=== PATIENT | female | born 1965 | race Caucasian/White ===

== ENCOUNTER 2017-06-08 12:09 | Day surgery (SDC) | payer SELFPAY ==
[2017-06-08] MEDS ORDERED: ALPRAZolam 0.5 MG TAB PO STA (12:45)
--- NOTE | 2017-06-08 13:22 | US ---
ULTRASOUND GUIDED FNA THYROID BIOPSY: CLINICAL HISTORY: Right thyroid nodule FINDINGS: The procedure was explained to the patient. The risks, complications, benefits and alternatives were discussed and any questions were answered. Informed consent was obtained. Patient was placed supin e on the ultrasound table and prepped and draped in the usual sterile fashion. Utilizing a 25 gauge needle, five passes were made into the requested right thyroid nodule. Patient was stable throughout the procedure. Pathology is pending. All elements of maximal barrier technique were utilized. IMPRESSION: 1. Successful ultrasound guided FNA thyroid biopsy.
[2017-06-08 14:34] VITALS: RESP 18; TEMP 98.1
[2017-06-08 14:36] VITALS: BP 147/80; PULSE 76
== END 2017-06-08 14:05 | disposition home or self-care (01) ==
LOC: RADPROMAIN 12:09
PROVIDERS: ATTEND Family Medicine
DX: E04.1 Nontoxic single thyroid nodule (principal); E07.89 Other specified disorders of thyroid
CPT/HCPCS: 10022; 76942; 88173; 88305

== ENCOUNTER 2017-08-22 12:35 | Emergency (ER) | payer SELFPAY ==
[2017-08-22] MEDS ORDERED: METOPROLOL TARTRATE 50 MG TAB PO STA (12:54)
--- NOTE | 2017-08-22 12:57 | ED ---
General Adult HPI - General Chief complaint: Recheck/Abnormal Lab/Rx Stated complaint: Hypertension Time Seen by Provider: 08/22/17 12:44 Source: patient, RN notes reviewed Mode of arrival: wheelchair Limitations: no limitations - History of Present Illness Initial comments: Patient is a pleasant 52-year-old female presenting to the emergency department for hypertension. Blood pressure has been running high since Tuesday. Blood pressure has been around 190/120. Patient did go doctor today with similar blood pressure of 190/110 and was advised come the emergency department. Patient feels somewhat tingly. Patient denies any chest discomfort. No shortness of breath. Patient does have a history of hypertension and has been taking her medication. 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 No confusion or weakness. Patient does complain of a headache. - Related Data Home Medications Medication Instructions Recorded Confirmed Acetaminophen [Tylenol] 650 mg PO Q4H PRN 06/06/17 08/22/17 Levothyroxine Sodium [Synthroid] 75 mcg PO DAILY 06/06/17 08/22/17 Meloxicam [Mobic] 15 mg PO DAILY 06/06/17 08/22/17 Dextroamphetamine/Amphetamine 30 mg PO DAILY 08/22/17 08/22/17 [Adderall Xr] Metoprolol Succinate [Toprol XL] 100 mg PO DAILY 08/22/17 08/22/17 Allergies Allergy/AdvReac Type Severity Reaction Status Date / Time No Known Allergies Allergy Verified 08/22/17 13:24 Review of Systems ROS Statement: Those systems with pertinent positive or pertinent negative responses have been documented in the HPI. ROS Other: All systems not noted in ROS Statement are negative. Constitutional: Denies: fever Eyes: Denies: eye pain ENT: Denies: ear pain Respiratory: Denies: cough Cardiovascular: Denies: chest pain Endocrine: Denies: fatigue Gastrointestinal: Denies: abdominal pain Genitourinary: Denies: dysuria Musculoskeletal: Denies: back pain Skin: Denies: rash Neurological: Reports: headache. Denies: weakness, confusion Past Medical History Past Medical History: Asthma, Hypertension, Osteoarthritis (OA), Thyroid Disorder Additional Past Medical History / Comment(s): hypothyroid History of Any Multi-Drug Resistant Organisms: None Reported Past Surgical History: Section Additional Past Surgical History / Comment(s): endometriosis surgery 3 times, c- section times 2 Past Anesthesia/Blood Transfusion Reactions: No Reported Reaction Past Psychological History: ADD/ADHD Smoking Status: Current every day smoker Past Alcohol Use History: Rare Past Drug Use History: None Reported - Past Family History Brother(s) Family Medical History: Cancer Additional Family Medical History / Comment(s): lung - Father Family Medical History: Thyroid Disorder Additional Family Medical History / Comment(s): hypothyroid Sister(s) Family Medical History: Thyroid Disorder Additional Family Medical History / Comment(s): hyperthyroid Mother Family Medical History: Thyroid Disorder Additional Family Medical History / Comment(s): hypothyroid General Exam Limitations: no limitations General appearance: alert, in no apparent distress Head exam: Present: atraumatic Eye exam: Present: normal appearance, PERRL, EOMI ENT exam: Present: normal oropharynx Neck exam: Present: normal inspection Respiratory exam: Present: normal lung sounds bilaterally Cardiovascular Exam: Present: regular rate, normal rhythm GI/Abdominal exam: Present: soft. Absent: tenderness Extremities exam: Present: normal inspection Neurological exam: Present: alert, oriented X3, CN II-XII intact. Absent: motor sensory deficit Expanded Cranial nerves: EOM's Intact: Normal Sensory exam: Upper Extremity Light Touch: Normal, Lower Extremity Light Touch: Normal Motor strength exam: RUE: 5, LUE: 5, RLE: 5, LLE: 5 Psychiatric exam: Present: normal affect, normal mood Skin exam: Present: normal color Course Vital Signs 08/22/17 08/22/17 08/22/17 12:44 13:46 14:00 Temperature 97.8 F Pulse Rate 77 63 Respiratory 16 16 Rate Blood Pressure 183/92 175/79 167/76 O2 Sat by Pulse 99 97 Oximetry EKG Findings - EKG Comments: EKG Findings:: Normal sinus rhythm 67. ME 154. QRS 94. QT 398. QTC 420. Normal axis. Normal QRS. No acute ST change. Medical Decision Making - Medical Decision Making Patient reexamined and resting comfortably in bed. Blood pressure has improved. Patient still has somewhat of a headache and is receptive to medication. Patient is otherwise comfortable with discharge home and agreeable to close follow-up with her doctor. - Lab Data Result diagrams: 08/22/17 12:58 08/22/17 12:58 Lab Results 08/22/17 08/22/17 08/22/17 Range/Units 12:58 12:58 12:58 WBC 7.8 (3.8-10.6) k/uL RBC 4.93 (3.80-5.40) m/uL Hgb 15.2 (11.4-16.0) gm/dL Hct 46.0 (34.0-46.0) % MCV 93.3 (80.0-100.0) fL MCH 30.8 (25.0-35.0) pg MCHC 33.0 (31.0-37.0) g/dL RDW 13.2 (11.5-15.5) % Plt Count 305 (150-450) k/uL Neutrophils % 55 % Lymphocytes % 33 % Monocytes % 7 % Eosinophils % 3 % Basophils % 1 % Neutrophils # 4.3 (1.3-7.7) k/uL Lymphocytes # 2.6 (1.0-4.8) k/uL Monocytes # 0.6 (0-1.0) k/uL Eosinophils # 0.3 (0-0.7) k/uL Basophils # 0.1 (0-0.2) k/uL PT (9.0-12.0) sec INR (<1.2) APTT (22.0-30.0) sec Sodium 140 (137-145) mmol/L Potassium 4.3 (3.5-5.1) mmol/L Chloride 106 (98-107) mmol/L Carbon Dioxide 24 (22-30) mmol/L Anion Gap 10 mmol/L BUN 15 (7-17) mg/dL Creatinine 0.60 (0.52-1.04) mg/dL Est GFR (MDRD) Af Amer >60 (>60 ml/min/1.73 sqM) Est GFR (MDRD) Non-Af >60 (>60 ml/min/1.73 sqM) Glucose 91 (74-99) mg/dL Calcium 9.6 (8.4-10.2) mg/dL Phosphorus 3.7 (2.5-4.5) mg/dL Total Bilirubin 0.4 (0.2-1.3) mg/dL AST 22 (14-36) U/L ALT 34 (9-52) U/L Alkaline Phosphatase 80 (38-126) U/L Total Creatine Kinase 75 (30-135) U/L CK-MB (CK-2) 2.2 (0.0-2.4) ng/mL CK-MB (CK-2) Rel Index 2.9 Troponin I <0.012 (0.000-0.034) ng/mL Total Protein 7.0 (6.3-8.2) g/dL Albumin 4.1 (3.5-5.0) g/dL TSH 3.790 (0.465-4.680) mIU/L Free T4 1.16 (0.78-2.19) ng/dL Free T3 pg/mL 3.6 (2.8-5.3) pg/ml Urine Color Urine Appearance (Clear) Urine pH (5.0-8.0) Ur Specific [place] (1.001-1.035) Urine Protein (Negative) Urine Glucose (UA) (Negative) Urine Ketones (Negative) Urine Blood (Negative) Urine Nitrite (Negative) Urine Bilirubin (Negative) Urine Urobilinogen (<2.0) mg/dL Ur Leukocyte Esterase (Negative) Urine RBC (0-5) /hpf Urine WBC (0-5) /hpf Ur Squamous Epith Cells (0-4) /hpf Urine Mucus (None) /hpf 08/22/17 08/22/17 Range/Units 12:58 13:35 WBC (3.8-10.6) k/uL RBC (3.80-5.40) m/uL Hgb (11.4-16.0) gm/dL Hct (34.0-46.0) % MCV (80.0-100.0) fL MCH (25.0-35.0) pg MCHC (31.0-37.0) g/dL RDW (11.5-15.5) % Plt Count (150-450) k/uL Neutrophils % % Lymphocytes % % Monocytes % % Eosinophils % % Basophils % % Neutrophils # (1.3-7.7) k/uL Lymphocytes # (1.0-4.8) k/uL Monocytes # (0-1.0) k/uL Eosinophils # (0-0.7) k/uL Basophils # (0-0.2) k/uL PT 10.1 (9.0-12.0) sec INR 1.0 (<1.2) APTT 23.8 (22.0-30.0) sec Sodium (137-145) mmol/L Potassium (3.5-5.1) mmol/L Chloride (98-107) mmol/L Carbon Dioxide (22-30) mmol/L Anion Gap mmol/L BUN (7-17) mg/dL Creatinine (0.52-1.04) mg/dL Est GFR (MDRD) Af Amer (>60 ml/min/1.73 sqM) Est GFR (MDRD) Non-Af (>60 ml/min/1.73 sqM) Glucose (74-99) mg/dL Calcium (8.4-10.2) mg/dL Phosphorus (2.5-4.5) mg/dL Total Bilirubin (0.2-1.3) mg/dL AST (14-36) U/L ALT (9-52) U/L Alkaline Phosphatase (38-126) U/L Total Creatine Kinase (30-135) U/L CK-MB (CK-2) (0.0-2.4) ng/mL CK-MB (CK-2) Rel Index Troponin I (0.000-0.034) ng/mL Total Protein (6.3-8.2) g/dL Albumin (3.5-5.0) g/dL TSH (0.465-4.680) mIU/L Free T4 (0.78-2.19) ng/dL Free T3 pg/mL (2.8-5.3) pg/ml Urine Color Yellow Urine Appearance Clear (Clear) Urine pH 5.5 (5.0-8.0) Ur Specific [place] 1.015 (1.001-1.035) Urine Protein Negative (Negative) Urine Glucose (UA) Negative (Negative) Urine Ketones Negative (Negative) Urine Blood Trace H (Negative) Urine Nitrite Negative (Negative) Urine Bilirubin Negative (Negative) Urine Urobilinogen <2.0 (<2.0) mg/dL Ur Leukocyte Esterase Moderate H (Negative) Urine RBC 3 (0-5) /hpf Urine WBC 4 (0-5) /hpf Ur Squamous Epith Cells 3 (0-4) /hpf Urine Mucus Rare H (None) /hpf - Radiology Data Radiology results: report reviewed (Computed tomography scan of the brain shows no acute process), image reviewed (Two-view chest x-ray shows no acute process.) Disposition Clinical Impression: Hypertension Disposition: HOME SELF-CARE Condition: Stable Instructions: Hypertension (ED) Additional Instructions: Please follow-up to in the next day or 2 for recheck. Return for increased blood pressure, headache, weakness or confusion, worsening symptoms or other concerns. Referrals: Mono Hayward DO [Primary Care Provider] - 1-2 days Time of Disposition: 14:26
[2017-08-22 13:22] LABS: Basophils # (A) 0.1 k/uL (0-0.2); Basophils % (A) 1 %; CH 31.9; CHCM 34.3; Eosinophils # (A) 0.3 k/uL (0-0.7); Eosinophils % (A) 3 %; HGB 15.2 gm/dL (11.4-16.0); Luc # (Auto) 0.07; Luc % (Auto) 1; Lymphocytes # (A) 2.6 k/uL (1.0-4.8); Lymphocytes % (A) 33 %; MCH 30.8 pg (25.0-35.0); MCV 93.3 fL (80.0-100.0); Mean Platelet Volume 7.5; Monocytes # (A) 0.6 k/uL (0-1.0); Monocytes % (A) 7 %; Neutrophils # (A) 4.3 k/uL (1.3-7.7); Neutrophils % (A) 55 %; RBC 4.93 m/uL (3.80-5.40); RDW 13.2 % (11.5-15.5); WBC 7.8 k/uL (3.8-10.6); WBC (Perox) 7.76
--- NOTE | 2017-08-22 13:33 | CT ---
EXAMINATION TYPE: CT brain wo con DATE OF EXAM: 08/22/2017 COMPARISON: NONE HISTORY: BO, hypertension CT DLP: 892.[address] of the brain was performed. The ventricles, basal cisterns and sulci overlying the cerebral convexities demonstrate mild enlargem ent. There is no evidence for intracranial hemorrhage or sulcal effacement. There is decreased attenuation about the periventricular white matter and deep white matter of both c erebral hemispheres, compatible with chronic small vessel ischemia. Differential diagnosis does inclu de demyelination. No mass effects are seen.No midline shift. Osseous calvarium is intact. If symptoms persist consider MRI. IMPRESSION: 1. Age related atrophic and chronic small vessel ischemic change without acute intracranial process s een at this time.
[2017-08-22 13:36] LABS: ALT 34 U/L (9-52); AST 22 U/L (14-36); Alkaline Phosphatase 80 U/L (38-126); Anion Gap 10 mmol/L; Blood Urea Nitrogen 15 mg/dL (7-17); Calcium 9.6 mg/dL (8.4-10.2); Carbon Dioxide 24 mmol/L (22-30); Chloride 106 mmol/L (98-107); Glucose 91 mg/dL (74-99); Non-African American GFR(MDRD) >60 (>60 ml/min/1.73 sqM); Phosphorus 3.7 mg/dL (2.5-4.5); Potassium 4.3 mmol/L (3.5-5.1); Sodium 140 mmol/L (137-145); Total Bilirubin 0.4 mg/dL (0.2-1.3)
[2017-08-22 13:39] LABS: Partial Thromboplastin Time 23.8 sec (22.0-30.0); Prothrombin Time 10.1 sec (9.0-12.0)
[2017-08-22 13:40] LABS: Creatine Kinase 75 U/L (30-135)
[2017-08-22 13:50] LABS: Appearance,Urine Clear (Clear); Bilirubin,Urine Negative (Negative); Glucose,Urine (UA) Negative (Negative); Ketones,Urine Negative (Negative); Leukocyte Esterase,Urine Moderate (Negative); Mucus,Urine Rare /hpf; Nitrite,Urine Negative (Negative); PH, Urine 5.5 (5.0-8.0); Particle Count 2656; Protein,Urine Negative (Negative); RBC,Urine 3 /hpf (0-5); Specific Gravity,Urine 1.015 (1.001-1.035); Squamous Epithelial Cell,Urine 3 /hpf (0-4); UA Billing (MACRO vs. MICRO) MICRO; Urobilinogen,Urine <2.0 mg/dL (<2.0); WBC,Urine 4 /hpf (0-5)
[2017-08-22 13:53] LABS: Creatine Kinase MB 2.2 ng/mL (0.0-2.4); Troponin I <0.012 ng/mL (0.000-0.034)
--- NOTE | 2017-08-22 14:15 | XR ---
EXAMINATION TYPE: XR chest 2V DATE OF EXAM: 08/22/2017 COMPARISON: NONE TECHNIQUE: PA and lateral views submitted. HISTORY: Weakness FINDINGS: The lungs are clear and there is no pneumothorax, pleural effusion, or focal pneumonia. Biapical pl eural thickening. Atherosclerotic change aorta. IMPRESSION: 1. No acute process.
[2017-08-22] MEDS ORDERED: Acetaminophen-Codeine 300-30mg TAB PO STA (14:23)
[2017-08-22 14:36] VITALS: BP 174/84; PULSE 61; RESP 12; TEMP 97.6
== END 2017-08-22 14:38 | disposition home or self-care (01) ==
LOC: EC 12:35
DX: I10 Essential (primary) hypertension (principal); M19.90 Unspecified osteoarthritis, unspecified site; E03.9 Hypothyroidism, unspecified; F90.9 Attention-deficit hyperactivity disorder, unspecified type; F17.200 Nicotine dependence, unspecified, uncomplicated; Z79.1 Long term (current) use of non-steroidal anti-inflammatories (NSAID); Z79.899 Other long term (current) drug therapy
CPT/HCPCS: 36415; 70450; 71020; 80053; 81001; 82550; 82553; 84100; 84439; 84443; 84481; 84484; 85025; 85610; 85730; 93005; 99284

== ENCOUNTER → 2018-02-10 | Outpatient (CLI) | payer OTHER ==
--- NOTE | 2018-02-10 10:13 | FL ---
ESOPHOGRAM. HISTORY: Dysphagia. Thyroid nodule. Esophagram was performed per the air contrast technique. The patient swallowed barium and effervesce nt crystals without difficulty or delay. Esophageal peristalsis and motility appear to be within normal limits. There is no evidence for filling defect, mass or diverticulum. No hiatal hernia seen. Subsequently single contrast cervical esophagram was performed which fails demonstrate evidence for a spiration penetration or mass. IMPRESSION: Unremarkable study.
== END | disposition home or self-care (01) ==
LOC: RADFLMAIN 09:18
PROVIDERS: ATTEND Family Medicine
DX: R09.89 Other specified symptoms and signs involving the circulatory and respiratory systems (principal)
CPT/HCPCS: 74220

== ENCOUNTER → 2024-03-20 | Outpatient (CLI) | payer OTHER ==
--- NOTE | 2024-03-20 14:55 | CA ---
Transthoracic Echo Report Name: Deidre Conklin Age: 58 Gender: F : 1965 Exam Date: 03/20/2024 12:53 Exam Location: [facility] Ht (in): 62 Wt (lb): 115 Ordering Physician: Mono Hayward DO Attending/Referring Phys: Chari Tomlinson [facility] [employer] Repairer Karyna Mejia RDCS Procedure CPT: Indications: R00.2 palpitations Cardiac Hx: Technical Quality: Good Contrast 1: Total Dose (mL): Contrast 2: Total Dose (mL): MEASUREMENTS (Male / Female) Normal Values 2D ECHO LV Diastolic Diameter PLAX 4.1 cm 4.2 - 5.9 / 3.9 - 5.3 cm LV Systolic Diameter PLAX 2.9 cm IVS Diastolic Thickness 0.9 cm 0.6 - 1.0 / 0.6 - 0.9 cm LVPW Diastolic Thickness 0.9 cm 0.6 - 1.0 / 0.6 - 0.9 cm LV Relative Wall Thickness 0.4 RV Internal Dim ED PLAX 2.2 cm LVOT Diameter 1.9 cm LV Diastolic Volume MOD BP 75.2 cm??? 67 - 155 / 56 - 104 cm??? LV Systolic Volume MOD BP 30.1 cm??? 22 - 58 / 19 - 49 cm??? LV Ejection Fraction MOD BP 60.0 % >= 55 % LV Cardiac Index MOD BP 2536.6 cm???/min???m??? LV Diastolic Volume MOD 4C 75.2 cm??? LV Systolic Volume MOD 4C 25.7 cm??? LV Ejection Fraction MOD 4C 65.8 % LV Cardiac Index MOD 4C 2778.7 cm???/min???m??? LV Diastolic Length 4C 7.5 cm LV Systolic Length 4C 6.3 cm LV Diastolic Volume MOD 2C 74.7 cm??? LV Systolic Volume MOD 2C 33.9 cm??? LV Ejection Fraction MOD 2C 54.6 % LV Cardiac Index MOD 2C 2294.1 cm???/min???m??? LV Diastolic Length 2C 7.5 cm LV Systolic Length 2C 6.5 cm LA Volume 35.6 cm??? 18 - 58 / 22 - 52 cm??? LA Volume Index 23.5 cm???/m??? 16 - 28 cm???/m??? Ascending Aorta Diameter 3.0 cm DOPPLER AV Peak Velocity 114.8 cm/s AV Peak Gradient 5.3 mmHg AV Mean Velocity 82.0 cm/s AV Mean Gradient 3.0 mmHg AV Velocity Time Integral 18.9 cm LVOT Peak Velocity 90.0 cm/s LVOT Peak Gradient 3.2 mmHg LVOT Velocity Time Integral 15.7 cm LVOT Stroke Volume 46.9 cm??? LVOT Stroke Volume Index 31.0 ml/m??? LVOT Cardiac Index 2634.0 cm???/min???m??? AV Area Cont Eq vti 2.5 cm??? AV Area Cont Eq pk 2.3 cm??? MV Area PHT 7.1 cm??? Mitral E Point Velocity 58.6 cm/s Mitral A Point Velocity 82.0 cm/s Mitral E to A Ratio 0.7 MV Deceleration Time 106.9 ms PV Peak Velocity 99.9 cm/s PV Peak Gradient 4.0 mmHg FINDINGS Left Ventricle Left ventricular ejection fraction is estimated at 60-65 %. Left ventricular cavity size normal. Left ventricular wall thickness normal. No obvious regional wall motion abnormalities. Right Ventricle Normal right ventricular size and function. Unable to estimate the right ventricular systolic pressure. Right Atrium Normal right atrial size. Left Atrium Normal left atrial size. Mitral Valve Structurally normal mitral valve. No evidence for mitral valve prolapse. No mitral stenosis. No mitral regurgitation. Aortic Valve Trileaflet aortic valve. No aortic valve stenosis or regurgitation. Tricuspid Valve Structurally normal tricuspid valve. No tricuspid stenosis. Trace tricuspid regurgitation. Pulmonic Valve Structurally normal pulmonic valve. No pulmonic stenosis. No pulmonic regurgitation. Pericardium No pericardial effusion. Aorta Normal size aortic root and proximal ascending aorta. CONCLUSIONS Preserved LV send stomach function Previewed by: Dr. Harvinder Yuen MD (Electronically Signed) Final Date: 20 March 2024 14:54
== END | disposition home or self-care (01) ==
LOC: RADECHMAIN 12:48
PROVIDERS: ATTEND Family Medicine
DX: R00.2 Palpitations (principal)
CPT/HCPCS: 93306

== ENCOUNTER 2024-10-04 06:13 | Day surgery (SDC) | payer OTHER ==
[2024-10-04] MEDS ORDERED: LIDOCAINE 1% (10MG/ML) FOR IV START INTRADERMA PRN (06:19)
[2024-10-04 06:55] VITALS: TEMP 97
[2024-10-04] MEDS: LACTATED RINGERS 1,000 ML IV SCH (07:05)
[2024-10-04] MEDS: LACTATED RINGERS 1,000 ML IV ONE (07:22)
[2024-10-04] MEDS ORDERED: LIDOCAINE 1% INJ 10MG/ML (20 ML MDV) ONE (07:22)
[2024-10-04] MEDS ORDERED: PROPOFOL 10 MG/ML 20 ML VIAL IV ONE (07:22)
--- NOTE | 2024-10-04 07:32 | P.PCN ---
Date of Procedure: 10/04/24 Procedure(s) Performed: BRIEF HISTORY: Patient is a 59-year-old, pleasant, white female scheduled for an upper endoscopy as a part evaluation of intermittent dysphagia to solids for the last 6 months duration.. PROCEDURE PERFORMED: Esophagogastroduodenoscopy with biopsy. PREOPERATIVE DIAGNOSIS: Intermittent dysphagia to solids. IV sedation per anesthesia. PROCEDURE: After informed consent was obtained, the patient was brought into the endoscopy unit. IV sedation was administered by Anesthesia under continuous monitoring. Initially the Olympus GIF-140 video endoscope was inserted into the mouth. Esophagus intubated without any difficulty. It was gradually advanced into the stomach and duodenum and carefully examined. The bulb and the second part of the duodenum appeared normal. The scope at this time was withdrawn to the stomach, adequately insufflated with air, and upon careful examination, mucosa of the antrum, had patchy areas of erythema consistent with gastritis and biopsies were done from this area. Mucosa body, cardia and the fundus appeared normal. The scope was then withdrawn into the esophagus. Small hiatal hernia noted. The GE junction was located at 39 cm from the incisors. The esophagus appeared normal. There were no erosions or ulcerations seen. No evidence of es ophageal stricture. Multiple biopsies were done from the mid and distal esophagus rule out eosinophilic esophagitis and the patient tolerated the procedure well. IMPRESSION: 1. Small hiatal hernia but no evidence of esophagitis or esophageal stricture. 2. Mild antral gastritis. RECOMMENDATIONS: The findings of this examination were discussed with the patient as well as her family. She was advised to follow with the biopsy results. If she has persistent symptoms she was advised to follow-up in the office for further evaluation.
[2024-10-04] MEDS: IV FLUID CONTINUATION 1,000 ML IV ONE ×2 (07:36→08:25)
[2024-10-04 08:22] VITALS: BP 132/82; PULSE 78; RESP 16
== END 2024-10-04 08:28 | disposition home or self-care (01) ==
LOC: ORWHC2ENDO 06:13
PROVIDERS: ATTEND Internal Medicine Gastroenterology
DX: K29.50 Unspecified chronic gastritis without bleeding (principal); K44.9 Diaphragmatic hernia without obstruction or gangrene; I10 Essential (primary) hypertension; E07.9 Disorder of thyroid, unspecified; J45.909 Unspecified asthma, uncomplicated; F90.9 Attention-deficit hyperactivity disorder, unspecified type; M19.90 Unspecified osteoarthritis, unspecified site; F17.200 Nicotine dependence, unspecified, uncomplicated; Z79.890 Hormone replacement therapy; Z79.899 Other long term (current) drug therapy
CPT/HCPCS: 43239; J2003; J2704; 88305

== ENCOUNTER → 2024-11-07 | Outpatient (CLI) | payer BC ==
--- NOTE | 2024-11-07 09:45 | MM ---
Reason for Exam: Screening (asymptomatic). Baseline mammogram. Patient History: Menarche at age 14. First Full-Term at age 23. Postmenopausal. Maternal aunt had breast cancer. Maternal aunt had breast cancer. Risk Values: Doreen 5 year model risk: 1.2%. NCI Lifetime model risk: 6.9%. Prior Study Comparison: Patient's first Mammogram. Tissue Density: There are scattered areas of fibroglandular density. Findings: Analyzed By CAD. Right breast: There is no suspicious group of microcalcifications or new suspicious mass. Left breast: Architectural distortion inner lower quadrant 4.8 cm nipple. Overall Assessment: Incomplete: need additional imaging evaluation, BI-RAD 0 Management: Diagnostic Mammogram of the left breast. Diagnostic Breast Ultrasound of the left breast. [facility] will attempt to contact patient to return for supplemental views and ultrasound if indicated. Patient should continue monthly self-breast exams. A clinical breast exam by your physician is recommended on an annual basis. This exam should not preclude additional follow-up of suspicious palpable abnormalities. Note on Doreen scores and lifetime risk: 1. A Doreen score greater than 3% is considered moderate risk. If this is the case, consider specialist referral to assess eligibility for a risk reducing agent. 2. If overall lifetime risk for the development of breast cancer is 20% or higher, the patient may qualify for future screening with alternating mammogram and breast MRI. [facility], , 11/07/2024 9:42 AM. Electronically signed and approved by: Salvador Hathaway DO
== END | disposition home or self-care (01) ==
LOC: RADMAMWWP 07:15
PROVIDERS: ATTEND Family Medicine
DX: Z12.31 Encounter for screening mammogram for malignant neoplasm of breast (principal); R92.323 Mammographic fibroglandular density, bilateral breasts; Z78.0 Asymptomatic menopausal state; Z80.3 Family history of malignant neoplasm of breast
CPT/HCPCS: 77063; 77067

== ENCOUNTER → 2024-12-05 | Day surgery (SDC) | payer BC ==
--- NOTE | 2024-12-18 10:11 | MM ---
Reason for Exam: Post Procedure Mammogram. Last screening mammogram was performed less than 1 month ago. Patient History: Menarche at age 14. First Full-Term at age 23. Postmenopausal. Maternal aunt had breast cancer. Maternal aunt had breast cancer. Risk Values: Doreen 5 year model risk: 1.2%. NCI Lifetime model risk: 6.9%. Prior Study Comparison: 11/07/2024 Bilateral MG 3D screening mammo w/cad, [facility]. 11/29/2024 Left MG 3D work up w/cad LT, [facility]. 11/29/2024 Left US breast workup , [facility]. Tissue Density: Left: There are scattered areas of fibroglandular density. Pathology Description: Location: 8 o'clock. Marker Left Behind. Needle Type: Mammotome Cores: 6 Skin Nicks: 1 Gauge: 13 The procedure of ultrasound guided core biopsy was explained to the patient. Benefits, alternatives, and risks were discussed. An informed consent was then obtained. The patient was placed in supine positioning for imaging and for the procedure. The overlying skin was prepped and draped in usual sterile fashion. Lidocaine buffered with bicarbonate was used as anesthetic into the skin and subcutaneous tissue up to area of concern in the left breast. A naif was made with surgical scalpel. Under ultrasound guidance, a 12-gauge vacuum assisted biopsy gun device was used to obtain 6 core samples. Following this, a coil biopsy clip and a wing clip marker left in lesion. As we could not see the first clip. The patient tolerated the procedure well without any immediate complication. The patient was kept in the radiology department for short stay after the procedure and then discharged home in stable condition. Postprocedure mammogram: The patient was transferred to mammography for physician ordered post procedure mammogram for clip placement verification. Post procedure mammogram demonstrates appropriate placement of clips and mass is still identified next to clip. Impression: Successful, uncomplicated ultrasound guided core biopsy of area of concern in the left breast, full pathology results to follow. [facility], , 12/05/2024 12:09 PM. Pathology Results: Result: Malignant, Ductal carcinoma in situ, cribriform type. Pathology and radiology were reviewed. Findings are concordant. LEFT BREAST, 8:00 POSITION, ULTRASOUND GUIDED CORE BIOPSY: Low grade ductal carcinoma in situ (DCIS) with focal microcalcification involving fibrotic and elastotic stroma of a potential radial scar. Rare area suspicious for possible microinvasive carcinoma, final assessment for presence of microinvasive or invasive carcinoma deferred to resection specimen. (see Surgical Pathology Cancer Case Summary and comment). Overall Assessment: Malignant Assessment: MG diagnostic mammo LT wo CAD. - Left: Known biopsy proven malignancy, BI-RAD 6. Management: Surgical Consultation of the left breast. Electronically signed and approved by: Salvador Hathaway DO
== END ==
LOC: RADUSWWP 09:54
PROVIDERS: ATTEND Surgery
DX: D05.12 Intraductal carcinoma in situ of left breast (principal); Z78.0 Asymptomatic menopausal state
CPT/HCPCS: 88305; 88342; 88341; 77065; 19083; A4648

== ENCOUNTER → 2024-12-20 | Outpatient (CLI) | payer BC ==
[2024-12-20 10:41] VITALS: BP 129/80; PULSE 71; RESP 16; TEMP 98.7
--- NOTE | 2024-12-20 11:08 | P.GSCN ---
History of Present Illness Consult date: 12/20/24 Reason for Consult: DCIS left breast Requesting physician: Mono Hayward History of present illness: Deidre is a 59 year old female seen in consultation for Dr. Hayward regarding a biopsy proven left breast DCIS. She had a bilateral screening mammogram on 11-07-24 which led to a diagnositc left breast mammogram and ultrasound on 11-29-24. These showed a lesion in the left breast 6 mm in size for which ultrasound core biopsy was done on 12-05-24. This revealed a low grade DCIS, ER+Pr+. She felt some nodularity prior to the mammogram. She tolerated the biopsy but states it was painful. She got black and blue and had some pain. She had not had any other surgery on her breast. This was her first mammogram. She is not complaining of any recent trauma or infection in the breast. She had never had any surgery on her breast. She did have come clear drainage form the left nipple in the past. The changes on ultrasound are in the lower inner breast 4 cm from nipple. caffeine: several times a week nicotine: / PPD has been smoking since 19 chocolate: occasional BCP: none hormones: none Family History: brother: mesotheloma 2 maternal aunts: breast cancer maternal grandmother: bone cancer Hormonal History: menarche: 14 , breast fed:yes, age at first : 23 menopause: early 40's Surgical History: 2 3 laproscopic surgeries for endometriosis Medical History: hypothyroid asthma osteoarthritis HTN Social History: nicotine: as above alcohol: none drugs: none Review of Systems - Constitutional Reports sweats, Denies fever, Denies weight loss - EENT EENT Comment(s): had difficulty swallowing and treated with antibiotics and better Eyes: denies blurred vision Ears: right: decreased hearing, deny: tinnitus Ears, nose, mouth and throat: Denies dysphagia - Breasts bilateral: as per HPI - Cardiovascular Reports shortness of breath, Denies chest pain - Respiratory Reports as per HPI, Reports cough - Gastrointestinal Gastrointestinal Comment(s): treated for H. Pylori - Genitourinary Genitourinary: Denies dysuria, Denies hematuria Menstruation: Reports postmenopausal - Musculoskeletal Reports as per HPI - Integumentary Denies rash, Denies unusual bruising - Neurological Denies headaches, Denies syncope - Psychiatric Reports as per HPI - Endocrine Reports as per HPI, Reports fatigue - Hematologic/Lymphatic Reports easy bruising, Denies easy bleeding - Allergic/Immunologic Reports seasonal allergies Past Medical History Past Medical History: Asthma, Hypertension, Osteoarthritis (OA), Thyroid Disorder Additional Past Medical History / Comment(s): hypothyroid History of Any Multi-Drug Resistant Organisms: None Reported Past Surgical History: Section Additional Past Surgical History / Comment(s): endometriosis surgery 3 times, c- section times 2 Past Anesthesia/Blood Transfusion Reactions: No Reported Reaction, Family History of Problems w/ Anesthesia Additional Past Anesthesia/Blood Transfusion Reaction / Comm: Niece had problems 30 yrs ago- not sure what, thinks just had a hard time coming out of anesthesia Past Psychological History: ADD/ADHD Smoking Status: Current some day smoker Past Alcohol Use History: None Reported Additional Past Alcohol Use History / Comment(s): currently smokes 5 cigarettes/week Past Drug Use History: None Reported - Past Family History Brother(s) Family Medical History: Cancer Additional Family Medical History / Comment(s): lung - Father Family Medical History: Thyroid Disorder Additional Family Medical History / Comment(s): hypothyroid Sister(s) Family Medical History: Thyroid Disorder Additional Family Medical History / Comment(s): hyperthyroid Mother Family Medical History: Thyroid Disorder Additional Family Medical History / Comment(s): hypothyroid Medications and Allergies Home Medications Medication Instructions Recorded Confirmed Type Acetaminophen [Tylenol] 650 mg PO Q4H PRN 06/06/17 12/20/24 History Levothyroxine Sodium [Synthroid] 88 mcg PO DAILY 06/06/17 12/20/24 History Dextroamphetamine/Amphetamine 15 mg PO BID 08/22/17 12/20/24 History [Adderall Xr] Albuterol Inhaler [Ventolin Hfa 1 - 2 puff INHALATION Q6H PRN 10/01/24 12/20/24 History Inhaler] Furosemide [Lasix] 20 mg PO BID 10/01/24 12/20/24 History Losartan [Cozaar] 25 mg PO DAILY 10/01/24 12/20/24 History Allergies Allergy/AdvReac Type Severity Reaction Status Date / Time No Known Allergies Allergy Verified 12/20/24 10:38 Surgical - Exam Vital Signs Temp Pulse Resp BP Pulse Ox 98.7 F 71 16 129/80 99 12/20/24 10:38 12/20/24 10:38 12/20/24 10:38 12/20/24 10:38 12/20/24 10:38 - General no distress - Eyes normal ocular movement - ENT no hearing loss - Neck trachea midline - Respiratory normal respiratory effort, clear to auscultation - Cardiovascular Rhythm: regular Heart Sounds: normal: S1, S2 - Integumentary bruise left arm - Neurologic no disoriented, no combative - Musculoskeletal normal gait - Psychiatric oriented to time, oriented to person, oriented to place, speech is normal, memory intact Breast Exam: BRA: 36C inspection: Bilateral grade 2 ptosis, ecchymosis lower inner quadrant left breast Palpation: Right breast: Multi positional exam no dominant masses or nodules of concern Right axilla: No adenopathy of concern Left breast: Multi positional exam no dominant masses or nodules of concern, mild ecchymosis at biopsy site no hematoma or infection Left axilla: No adenopathy of concern Results Mammogram and ultrasound personally reviewed and interpreted lesion left breast proximately 4 cm from the nipple approximately 6 mm in size lower inner aspect; 11-29-24 and screening mammogram on 11-07-24 Assessment and Plan Assessment: Impression: Biopsy-proven left breast ductal carcinoma in situ Plan: Presentation of case at tumor board CC: Dr. Hayward
== END ==
LOC: WWCWWP 09:53
PROVIDERS: ATTEND Surgery
DX: D05.12 Intraductal carcinoma in situ of left breast (principal); Z80.3 Family history of malignant neoplasm of breast; F17.210 Nicotine dependence, cigarettes, uncomplicated

== ENCOUNTER → 2025-01-24 | Outpatient (CLI) | payer BC ==
[2025-01-24 15:37] VITALS: BP 144/90; PULSE 98; RESP 17; TEMP 98.2
--- NOTE | 2025-01-24 16:04 | P.BCPN ---
Subjective Progress Note Date: 01/24/25 History of Present Illness Consult date: 01-24-25 Reason for Consult: DCIS left breast Requesting physician: Mono Hayward History of present illness: Deidre is a 59 year old female seen in consultation for Dr. Hayward regarding a biopsy proven left breast DCIS. She had a bilateral screening mammogram on 11-07-24 which led to a diagnositc left breast mammogram and ultrasound on 11-29-24. These showed a lesion in the left breast 6 mm in size for which ultrasound core biopsy was done on 12-05-24. This revealed a low grade DCIS, ER+Pr+. She felt some nodularity prior to the mammogram. She tolerated the biopsy but states it was painful. She got black and blue and had some pain. She had not had any other surgery on her breast. This was her first mammogram. She is not complaining of any recent trauma or infection in the breast. She had never had any surgery on her breast. She did have come clear drainage form the left nipple in the past. The changes on ultrasound are in the lower inner breast 4 cm from nipple. Patient's case presented at tumor board on 01 01 25. She has been recommended to undergo genetic testing and referral has been placed to [facility]. They were done with [facility] on 01-08-25. I have called the patient she understands that she states that if her genetic testing were positive she would want to have bilateral mastectomies. She also states that her family history is greater than what we had thought that she had 6 maternal aunts out of 10 with breast cancer. I had a discussion with the patient and her with Emily Youngblood present regarding risk and benefits of the treatment. At this time she would prefer to have a needle localization left breast lumpectomy with a sentinel node eval uation. The reason for the sentinel node evaluation is secondary to the fact that there is a question of microinvasion on the pathology report. Her case was presented at tumor board on 01 01 25 Genetic testing is pending and should be back by 01-29-2025. caffeine: several times a week nicotine: 10/13 PPD has been smoking since 19 chocolate: occasional BCP: none hormones: none Family History: brother: mesotheloma 2 maternal aunts: breast cancer maternal grandmother: bone cancer Hormonal History: menarche: 14 , breast fed:yes, age at first : 23 menopause: early 40's Surgical History: 2 3 laproscopic surgeries for endometriosis Medical History: hypothyroid asthma osteoarthritis HTN Social History: nicotine: as above alcohol: none drugs: none Review of Systems - Constitutional Reports sweats, Denies fever, Denies weight loss - EENT EENT Comment(s): had difficulty swallowing and treated with antibiotics and better Eyes: denies blurred vision Ears: right: decreased hearing, deny: tinnitus Ears, nose, mouth and throat: Denies dysphagia - Breasts bilateral: as per HPI - Cardiovascular Reports shortness of breath, Denies chest pain - Respiratory Reports as per HPI, Reports cough - Gastrointestinal Gastrointestinal Comment(s): treated for H. Pylori - Genitourinary Genitourinary: Denies dysuria, Denies hematuria Menstruation: Reports postmenopausal - Musculoskeletal Reports as per HPI - Integumentary Denies rash, Denies unusual bruising - Neurological Denies headaches, Denies syncope - Psychiatric Reports as per HPI - Endocrine Reports as per HPI, Reports fatigue - Hematologic/Lymphatic Reports easy bruising, Denies easy bleeding - Allergic/Immunologic Reports seasonal allergies Past Medical History Past Medical History: Asthma, Hypertension, Osteoarthritis (OA), Thyroid Disorder Additional Past Medical History / Comment(s): hypothyroid History of Any Multi-Drug Resistant Organisms: None Reported Past Surgical History: Section Additional Past Surgical History / Comment(s): endometriosis surgery 3 times, c- section times 2 Past Anesthesia/Blood Transfusion Reactions: No Reported Reaction, Family History of Problems w/ Anesthesia Additional Past Anesthesia/Blood Transfusion Reaction / Comm: Niece had problems 30 yrs ago- not sure what, thinks just had a hard time coming out of anesthesia Past Psychological History: ADD/ADHD Smoking Status: Current some day smoker Past Alcohol Use History: None Reported Additional Past Alcohol Use History / Comment(s): currently smokes 5 cigarettes/week Past Drug Use History: None Reported - Past Family History Brother(s) Family Medical History: Cancer Additional Family Medical History / Comment(s): lung - Father Family Medical History: Thyroid Disorder Additional Family Medical History / Comment(s): hypothyroid Sister(s) Family Medical History: Thyroid Disorder Additional Family Medical History / Comment(s): hyperthyroid Mother Family Medical History: Thyroid Disorder Additional Family Medical History / Comment(s): hypothyroid Medications and Allergies Home Medications Medication Instructions Recorded Confirmed Type Acetaminophen [Tylenol] 650 mg PO Q4H PRN 06/06/17 12/20/24 History Levothyroxine Sodium [Synthroid] 88 mcg PO DAILY 06/06/17 12/20/24 History Dextroamphetamine/Amphetamine 15 mg PO BID 08/22/17 12/20/24 History [Adderall Xr] Albuterol Inhaler [Ventolin Hfa 1 - 2 puff INHALATION Q6H PRN 10/01/24 12/20/24 History Inhaler] Furosemide [Lasix] 20 mg PO BID 10/01/24 12/20/24 History Losartan [Cozaar] 25 mg PO DAILY 10/01/24 12/20/24 History Allergies Allergy/AdvReac Type Severity Reaction Status Date / Time No Known Allergies Allergy Verified 12/20/24 10:38 Objective - Vital Signs Vital Signs: Vital Signs Temp 98.2 F 01/24/25 15:27 Pulse 98 01/24/25 15:27 Resp 17 01/24/25 15:27 BP 144/90 01/24/25 15:27 Pulse Ox 96 01/24/25 15:27 FiO2 Intake & Output 01/23/25 01/24/25 01/24/25 18:59 06:59 18:59 Weight 52.163 kg - Constitutional General appearance: Present: cooperative - EENT Eyes: Present: EOMI ENT: Present: hearing grossly normal - Neck Neck: Present: normal ROM - Breast Breast-Narrative: Breast Exam: BRA: 36C inspection: Bilateral grade 2 ptosis, ecchymosis lower inner quadrant left breast Palpation: Right breast: Multi positional exam no dominant masses or nodules of concern Right axilla: No adenopathy of concern Left breast: Multi positional exam no dominant masses or nodules of concern, mild ecchymosis at biopsy site no hematoma or infection Left axilla: No adenopathy of concern Ptosis: Grade 2: Right Breast Ptosis, Left Breast Ptosis Right Breast Palpation (Multi-positional): No dominant masses Left Breast Palpation (Multi-positional): No dominant masses Right Axilla Palpation: No adenopathy of concern Left Axilla Palpation: No adenopathy of concern - Respiratory Respiratory: bilateral: CTA - Cardiovascular Rhythm: regular Heart sounds: normal: S1, S2 - Integumentary Integumentary: Present: normal turgor - Musculoskeletal Musculoskeletal: Present: gait normal - Psychiatric Psychiatric: Present: A&O x's 3, appropriate affect, intact judgment & insight Assessment and Plan Plan: Impression: Mammogram and ultrasound personally reviewed and interpreted lesion left breast proximately 4 cm from the nipple approximately 6 mm in size lower inner aspect; 11-29-24 and screening mammogram on 11-07-24 Biopsy-proven left breast ductal carcinoma in situ; Plan: Presentation of case at tumor board done on 01-01-25 left breast needle localization lumpectomy and possible oncoplastic tissue transfer, left sentinel node injection, left sentinel node biopsy, possible left axillary node dissection If genetic testing (+) will want bilateral mastectomy CC: Dr. Hayward Prep Education Provided - Preoperative Education Given Pre-Op Kit Given Date: 01/24/25 - Functional Assessment Performed?: Yes (passed arm abduction) - Smoking Cessation Education Provided?: Yes (stopped two weeks ago)
== END ==
LOC: WWCWWP 14:59
PROVIDERS: ATTEND Surgery
DX: Z12.31 Encounter for screening mammogram for malignant neoplasm of breast (principal); D05.12 Intraductal carcinoma in situ of left breast; F17.210 Nicotine dependence, cigarettes, uncomplicated

== ENCOUNTER 2025-02-05 08:12 | Day surgery (SDC) | payer BC ==
[2025-01-31 12:31] VITALS: BMI 21.9
[~2025-02-05 08:12] MED LIST: HYDROmorphone 0.5 MG/0.5 ML SYRINGE IVP PRN; LIDOCAINE 1% (10MG/ML) FOR IV START INTRADERMA PRN; METHYLENE BLUE 50 MG, DEXTROSE 5% IN WATER 50 ML MISCELLANE ONE; MIDAZOLAM 2 MG/2 ML VIAL IV PRN; fentaNYL (PF) 50 MCG/ML 2 ML AMP IVP PRN
[2025-02-05] MEDS: LACTATED RINGERS 1,000 ML IV SCH (08:52)
[2025-02-05] MEDS: ACETAMINOPHEN TAB 500 MG TAB PO PRN (08:52)
[2025-02-05] MEDS: ALPRAZolam 0.5 MG TAB PO STA (08:53)
[2025-02-05] MEDS: IV FLUID CONTINUATION 1,000 ML IV ONE ×2 (09:05→13:37)
[2025-02-05] MEDS: SODIUM BICARB 8.4% 50 ML VIAL (1 MEQ/ML) MISCELLANE ONE (09:50)
[2025-02-05] MEDS: LIDOCAINE 1% INJ 10MG/ML (20 ML MDV) SQ ONE (09:50)
[2025-02-05] MEDS: METHYLENE BLUE 50 MG/10 ML VIAL MISCELLANE ONE (10:05)
--- NOTE | 2025-02-05 10:17 | P.NAPBC ---
NAPBC Queries - NAPBC Queries Was patient's case review presented at [facility] tumor board? If no, comment.: Yes Was patient's pathology reviewed at [facility]? If no, comment.: Yes Was breast conservation surgery offered? If no, comment.: Yes Was sentinel node biopsy offered? If no, comment.: Yes Was diagnosis confirmed by percutaneous core biopsy? If no, comment.: Yes Is patient mastectomy patient?: No Was a preop referral to reconstructive surgeon offered?: No Clinical Stage: stage 0 DCIS left bresat
[2025-02-05] MEDS: ONDANSETRON 4 MG/2 ML VIAL IVP ONE (10:33)
[2025-02-05] MEDS: HEPARIN SODIUM,PORCINE 5,000 UNIT/ML 1 ML VIAL SQ PRN (10:33)
[2025-02-05] MEDS: DEXAMETHASONE SOD PHOSPHATE 4 MG/ML 1 ML VIAL IV ONE (10:33)
[2025-02-05] MEDS: LIDOCAINE 1% INJ 10MG/ML (30 ML VIAL-PF) SQ ONE ×2 (10:39→12:44)
[2025-02-05] MEDS ORDERED: ROCURONIUM 10 MG/ML (5 ML VIAL) IV ONE (10:42)
[2025-02-05] MEDS ORDERED: PHENYLEPHRINE-0.9% NACL SYG 1,000 MCG/10 ML SYRINGE ONE (10:42)
[2025-02-05] MEDS ORDERED: PROPOFOL 10 MG/ML 20 ML VIAL IV ONE (10:42)
[2025-02-05] MEDS ORDERED: SUCCINYLCHOLINE CHLORIDE 200 MG/10 ML VIAL IV ONE (10:42)
[2025-02-05] MEDS ORDERED: fentaNYL (PF) 50 MCG/ML 2 ML AMP ONE (10:42)
[2025-02-05] MEDS ORDERED: LIDOCAINE 1% INJ 10MG/ML (20 ML MDV) ONE (10:42)
[2025-02-05] MEDS: ceFAZolin 2 GM in DEXTROSE 5% IN WATER 50 ML IVPB PRN (10:47)
--- NOTE | 2025-02-05 12:47 | P.BCAON ---
Date of Procedure: 02/05/25 Preoperative Diagnosis: DCIS left breast Postoperative Diagnosis: Same Procedure(s) Performed: Left breast needle localization lumpectomy, sentinel node biopsy, oncoplastic tissue transfer 49.75 cm Anesthesia: KINSEY Surgeon: Shannan Sanchez Estimated Blood Loss (ml): 10 IV fluids (ml): 800 Pathology: other ([place] lymph node, breast tissue) Condition: stable Disposition: same day Indications for Procedure: Biopsy-proven left breast DCIS Operative Findings: Fatty breast tissue Description of Procedure: The patient was first seen in the radiology department for needle localization of 2 clips as well as methylene blue injection was performed. Additionally injection for sentinel node biopsy with radiotracer was performed. The patient was then brought to the operative suite. Following induction of anesthesia the neoprobe was used to interrogate the axilla. A area of increased radioactivity was identified. The breast was prepped and draped in a sterile fashion as well as the axilla. The area of the axilla was approached initially. A small incision was made and carried down to the radioactive area. The area was grasped using an Allis clamp and a lymph node was identified. This was resected. The 10-second count on the lymph node was 8515. The 10-second background count was 23. No palpable adenopathy otherwise was identified and no other radioactive lymph nodes were noted. The wound was irrigated. The deep tissues were closed using 3-0 Vicryl suture. The subcutaneous tissue was closed with 3-0 Vicryl suture. The skin was closed using 4-0 Monocryl. Following this the area of the breast was approached. An incision was made and carried down to the hook of the needle. This was blue tissue as well as the area of the hook of the needle. The entire area was resected. It was painted for orientation and sent for radiograph. 1 clip was noted but the second clip was not noted. Therefore complete reexcision of the biopsy cavity was performed. Radiograph of the repeat specimen likewise did not reveal the second clip. It was felt that the area of concern was definitely removed as per the first clip being removed and everything in proximity to that as well as the area of the blue dye. Therefore it was determined to stop the procedure with recent guard to resection. The specimen was 7.5 x 2.5 cm. The wound was well irrigated. Posteriorly dissection was performed onto the pectoralis muscle. The patient had a superior pillar 7 x 3 cm formed. An inferior pillar 5 x 2 cm 1. The patient had titanium clips placed in the cavity. Surgicel in powder form was placed. The superior and inferior pillar were brought together and secured using 3-0 Vicryl suture. The subcutaneous tissue was secured with 3-0 Vicryl suture. 4-0 Monocryl was used to close the subcuticular tissue. The patient tolerated the procedure in stable condition. All instrument and sponge counts were correct at the end of the case. We will await pathology evaluation. It is felt that the second clip area was definitely resected secondary to the wide excision around the first clip as well as the total excision of the blue tissue stained by the methylene blue dye. 10 cc of 1% lidocaine were injected into the incisions. Surgical glue was placed on both incisions. - Sentinal Node Biopsy Operation performed with curative intent: Yes Tracer(s) used in upfront surgery (non-neoadjuvant): radioactive tracer Tracer(s) used in the neoadjuvant setting: N/A All nodes present at end of dye-filled channel removed: N/A All significantly radioactive nodes were removed: Yes All palpably suspicious nodes were removed: Yes Clipped positive nodes identified and removed: N/A
[2025-02-05 13:09] VITALS: TEMP 97.7
[2025-02-05 13:37] VITALS: RESP 16
[2025-02-05 14:56] VITALS: BP 129/85; PULSE 70
--- NOTE | 2025-02-06 06:26 | NM ---
EXAMINATION TYPE: NM sentinel node injection DATE OF EXAM: 02/05/2025 COMPARISON: NONE CLINICAL INDICATION: Female, 59 years old with history of D05.12 INTRADUCTAL CARCINOMA IN SITU LEFT B REAST; left breast cancer 8:00 position. TECHNIQUE AND FINDINGS: The procedure of sentinel lymph node injection was explained to the patient. The benefits, alternatives, and risks were discussed. An informed consent was then obtained. Overlying skin is cleaned with sterile alcohol. Following this, 530 uCi Tc99m Tilmanocept was inject ed in the upper outer aspect of the left nipple intradermally. The patient tolerated the procedure well without any immediate complication. The patient was kept in the radiology department for short stay after the procedure and then taken to surgery for surgical p rocedure what is presumed intraoperative gamma probe will be used for sentinel lymph node detection. IMPRESSION: Left breast radiotracer injection for sentinel node localization as above. [facility], , 02/06/2025 6:24 AM
--- NOTE | 2025-02-14 08:25 | MM ---
Pathology Description: The procedure of needle localization with wire placement and than surgical excision was explained to the patient. Benefits, alternatives, and risks were discussed. An informed consent was then obtained. Case is reviewed. There are 2 positive biopsy clips in close proximity approximately 6 mm distance apart from each other. They are targeted together. The shortest pathway for procedure was chosen. Shortest pathway was medial to lateral approach. The overlying skin was prepped and draped in usual sterile fashion. Lidocaine buffered with bicarbonate was used as anesthetic into the skin and subcutaneous tissue up to the level of area of concern. A 7 cm needle was used. It was placed via a medial to lateral approach under mammographic guidance. Subsequent 90 degrees mammogram show the needle to be in satisfactory position relative to the targeted area. At this point, ordering surgeon comes to inject diluted methylene blue as per her surgical protocol. Following this wire is inserted. At this point, wire was placed and the needle was withdrawn. The wire was fixed to patient's skin. Images were marked for surgeon. The patient tolerated the procedure well without any immediate complication. The patient was kept in the radiology department for short stay after the procedure and then taken to surgery for surgical excision. Only 1 targeted biopsy clip and wire are identified in specimen mammogram. Second coil clip is not identified on second sample. The patient was kept in hospital for short stay after the procedure and then discharged home in stable condition. Impression: Needle localization with wire placement and surgical excision of one of the 2 targeted biopsy clips in the left breast, full pathology results to follow. [facility], , 02/06/2025 6:27 AM. Pathology Results: Result: Malignant. Pathology and radiology were reviewed. Findings are concordant. A. SENTINEL LYMPH NODE LEFT BREAST: Lymph node negative for metastasis. CK7 immunostain performed on block A1, WILLIAM immunostain performed on block A2, and CKAE1/3 immunostain performed on block A3 are all confirmatory (controls appropriate). B. LEFT BREAST TISSUE, LUMPECTOMY: Low grade ductal carcinoma in situ (DCIS), margins negative. Focal lobular neoplasia (ALH/LCIS) and background proliferative fibrocystic changes including fibroadenomatoid hyperplasia. Previous biopsy site. See Surgical Pathology Cancer Case Summary and Comment. C. LEFT BREAST TISSUE, LUMPECTOMY: Benign breast tissue with proliferative fibrocystic changes. Overall Assessment: Malignant Management: Diagnostic Mammogram of the left breast in 6 months. Electronically signed and approved by: Chente Verdugo M.D.
== END 2025-02-05 15:10 | disposition home or self-care (01) ==
LOC: OR 08:12
PROVIDERS: ATTEND Surgery
DX: D05.12 Intraductal carcinoma in situ of left breast (principal)
CPT/HCPCS: 19301; 14301; 88342; 88307; 88341; 76098; 19281; 38792; C1819; A9520; J0330; J1644; J1100; J0690; J2405; J2003 ×2; J3010; J2704; Q9968; J2371

== ENCOUNTER → 2025-02-14 | Outpatient (CLI) | payer BC ==
[2025-02-14 09:30] VITALS: BP 131/75; PULSE 91; RESP 17; TEMP 97.9
--- NOTE | 2025-02-14 09:44 | P.BCPO ---
Progress Note - Text Progress Note Date: 02/14/25 Deidre is a 59 year old status post left breast needle localization lumpectomy and SNB on 02-05-25. Only one of two clips were noted in the specimen, but the previous biopsy site was noted as well as DCIS 5mm. The margins were all (-) with the posterior which was on the pect muscle being 1mm, this area was all re-excised and no residual noted. Examination: lungs: clear heart: RRR incision breast and axilla clean and dry Impression: Patient doing well postoperatively Plan: She is meeting with radiation oncology She has seen medical oncology and will start hormone blocking agent after the radiation Follow-up here in 4 months Follow-up sooner any questions or concerns Post Op Education - Post Op Education Post Op Education Provided Date: 02/14/25 - Functional Assessment Performed?: Yes (arm abduction passed)
== END ==
LOC: WWCWWP 09:18
PROVIDERS: ATTEND Surgery
DX: Z48.89 Encounter for other specified surgical aftercare (principal); F17.200 Nicotine dependence, unspecified, uncomplicated; Z98.890 Other specified postprocedural states

== ENCOUNTER → 2025-02-25 | Outpatient (CLI) | payer BC ==
--- NOTE | 2025-02-25 14:59 | CTL ---
EXAMINATION TYPE: CT Low Dose Lung DATE OF EXAM: 02/25/2025 7:47 AM COMPARISON: None. CLINICAL INDICATION: Female, 59 years old with history of Z12.2 Enctr scrn malig neop, F17.210 Nict D epend, smoker, History of tobacco use. Current smoker with 20 pack-year history TECHNIQUE: Low dose computed tomography scan was performed through the chest at 1 mm thick sections a nd reconstructed images in multiple planes at 1 mm and [address] DLP: 55 mGycm, CT CTDI: 1.72 mGy, Automated exposure control for dose reduction was used. CT DIAGNOSTIC QUALITY: Satisfactory FINDINGS: Postsurgical changes left breast. Abnormal rounded opacity at the left axilla measuring 4.6 x 2.4 cm, possible postoperative seroma after axillary node dissection. This needs further clinical correlatio n. Consider targeted ultrasound to confirm. Heart normal size without pericardial effusion. Mild LAD coronary artery calcifications are present. Mild atherosclerotic arch calcifications. Conventional arch vessel branching anatomy. No thoracic lymph adenopathy by CT size criteria. Mild diffuse bronchial wall thickening. Mild centrilobular emphysema. Some minimal patchy groundglass anterior right upper lobe axial image 62 and 67, bilateral anterior midlungs, axial image 20, and pe riphery of the left base, axial image 211. No consolidation or pleural effusion. Biapical pleural parenchymal scarring. Some of these areas are more nodular varying in size but measu ring up to 1.4 cm. Follow-up recommended to exclude any early suspicious pulmonary nodule. Benign calcified granuloma lateral right mid lung. No other suspicious pulmonary nodule. Visualized upper abdomen shows no gross abnormality. Bones: No osseous destructive process. IMPRESSION: 1. LungRADS 4a, suspicious; there is biapical pleural-parenchymal scarring but some areas having a mo re nodular configuration measuring up to 1.4 cm. 3 month follow-up low-dose CT chest to exclude any s uspicious pulmonary nodule. 2. COPD with mild emphysema. Some minimal scattered patchy groundglass change is noted and could repr esent small nonspecific infectious/inflammatory foci. Correlate with patient's symptoms. 3. A 4.6 cm oval lesion at the left axilla, possible postoperative seroma in the setting of recent ax illary node dissection. Clinical correlation recommended. Consider breast axilla ultrasound to confir m benign seroma. CT LUNG RAD AND CT CHEST RECOMMENDATION: Lung-Rad 4A Suspicious: Follow-up 3 month LDCT or PET/CT may be used when there is a > 8 mm solid component. S Modifier (other clinically significant findings): S, consider breast axilla ultrasound of the left to confirm postoperative seroma. [facility], , 02/25/2025 2:57 PM
== END | disposition home or self-care (01) ==
LOC: RADCTMAIN 07:31
PROVIDERS: ATTEND Radiology Radiation Oncology
DX: Z12.2 Encounter for screening for malignant neoplasm of respiratory organs (principal); F17.210 Nicotine dependence, cigarettes, uncomplicated; J44.9 Chronic obstructive pulmonary disease, unspecified; J43.9 Emphysema, unspecified; J98.4 Other disorders of lung; R91.1 Solitary pulmonary nodule; N63.32 Unspecified lump in axillary tail of the left breast
CPT/HCPCS: 71271